=== PATIENT | male | born 1965 | race Asian ===

== ENCOUNTER 2021-08-31 12:32 | Inpatient (IN) | payer OTHER ==
[~2021-08-31] VITALS: Ht 172.7 cm; Wt 69.9 kg
[2021-08-31 15:00] VITALS: BP 98/61
[2021-08-31] MEDS ORDERED: MELATONIN 3 MG TABLET PO PRN (16:00)
[2021-08-31] MEDS ORDERED: INSULIN LISPRO 100 UNITS/ML SQ PRN (18:15)
[2021-08-31] MEDS ORDERED: GLUCAGON,HUMAN RECOMBINANT 1 MG VIAL IM PRN (18:15)
[2021-08-31 20:55] VITALS: BP 104/65
[2021-08-31] MEDS: METOPROLOL TARTRATE 25 MG TABLET PO SCH (21:00)
[2021-08-31] MEDS: PANTOPRAZOLE SODIUM 40 MG DR TABLET PO SCH (21:05)
[2021-08-31] MEDS: ATORVASTATIN CALCIUM 40 MG TABLET PO SCH (21:05)
[2021-08-31] MEDS: ETHYL ALCOHOL 62% ANTISEPTIC NASAL SANITIZER 0.6 ML AMPUL NASAL SCH (21:05)
[2021-08-31] MEDS: DOCUSATE SODIUM 100 MG CAPSULE PO SCH (21:05)
[2021-08-31] MEDS: TAMSULOSIN HCL 0.4 MG CAPSULE PO SCH (21:05)
[2021-08-31 21:35] VITALS: BP 103/65
[2021-08-31 23:29] LABS: APPEARANCE,URINE CLEAR (CLEAR); BILIRUBIN,URINE NEGATIVE (NEGATIVE); GLUCOSE, URINE (UA) NEGATIVE (NEGATIVE); KETONES,URINE NEGATIVE (NEGATIVE); LEUKOCYTE ESTERASE ,URINE NEGATIVE (NEGATIVE); NITRATE,URINE NEGATIVE (NEGATIVE); OCCULT BLOOD,URINE NEGATIVE (NEGATIVE); PROTEIN,URINE NEGATIVE (NEGATIVE); UROBILINOGEN,URINE <=1.0 mg/dL (<=1.0)
[2021-08-31 23:44] LABS: BACTERIA,URINE None Seen /HPF (None Seen); RBC,URINE None Seen /HPF (0-2); WBC,URINE None Seen /HPF (0-5)
[2021-09-01] VITALS: BP 103/59
[2021-09-01 06:02] LABS: GLUCOMETER DEV NAME(LOC) 2WR.1C; GLUCOSE,POINT OF CARE 107 MG/DL (70-110)
[2021-09-01] MEDS: ETHYL ALCOHOL 62% ANTISEPTIC NASAL SANITIZER 0.6 ML AMPUL NASAL SCH ×2 (07:57→21:15)
[2021-09-01] MEDS: AmLODIPine BESYLATE 10 MG TABLET PO SCH (07:57)
[2021-09-01] MEDS: METOPROLOL TARTRATE 25 MG TABLET PO SCH ×2 (07:57→21:00)
[2021-09-01] MEDS: DOCUSATE SODIUM 100 MG CAPSULE PO SCH ×2 (07:58→21:15)
[2021-09-01 08:02] LABS: BASOPHILS % (AUTO) 0.8 % (0.0-2.0); EOSINOPHILS % (AUTO) 13.5 % (1.0-6.0); HEMATOCRIT 35.8 % (41-53); HEMOGLOBIN 11.7 g/dL (13.5-17.5); LYMPHOCYTES # (AUTO) 2.9 K/uL (1.0-4.8); LYMPHOCYTES % (AUTO) 32.5 % (22.0-44.0); MEAN CORPUSCULAR HEMOGLOBIN 22.9 pg (26.0-34.0); MEAN CORPUSCULAR HGB CONC 32.7 G/dL (31.0-37.0); MEAN CORPUSCULAR VOLUME 70 fL (80-100); MONOCYTES # (AUTO) 0.5 K/uL (0.1-1.0); MONOCYTES % (AUTO) 5.3 % (2.0-9.0); NEUTROPHILS # (AUTO) 4.2 K/uL (1.8-7.7); NEUTROPHILS % (AUTO) 47.9 % (40.0-70.0); PLATELET COUNT (AUTO) 317 K/uL (150-450); RED BLOOD CELL COUNT(AUTO) 5.09 MIL/uL (4.50-5.90); RED CELL DISTRIBUTION WIDTH 15.9 % (11.5-14.5)
[2021-09-01 08:09] LABS: HEMOGLOBIN A1C 5.4 % (3.8-5.6)
[2021-09-01 08:15] VITALS: BP 120/72
[2021-09-01 08:22] LABS: ALANINE AMINOTRANSFERASE 22 U/L (12-78); ALBUMIN 3.5 g/dL (3.4-5.0); ALKALINE PHOSPHATASE 90 U/L (46-116); ANION GAP 9 mmol/L (8-16); ASPARTATE AMINOTRANSFERASE 18 U/L (15-37); BILIRUBIN,TOTAL 0.5 mg/dL (0.1-1.0); CALCIUM, TOTAL 9.3 mg/dL (8.8-10.5); CARBON DIOXIDE 27 mmol/L (22-29); CHLORIDE 102 mmol/L (98-107); CREATININE 0.83 mg/dL (0.60-1.30); GLOMERULAR FILTR. RATE CALC > 60 mL/min (>60); GLUCOSE,RANDOM 108 mg/dL (70-110); POTASSIUM 3.7 mmol/L (3.5-5.1); SODIUM SERUM 138 mmol/L (136-145); TOTAL PROTEIN, SERUM 7.5 g/dL (6.4-8.2); UREA NITROGEN, BLOOD 11 mg/dL (7-18)
[2021-09-01 09:35] VITALS: BP 105/75
[2021-09-01] MEDS: ACETAMINOPHEN 325 MG TABLET PO PRN (10:53)
[2021-09-01 16:05] VITALS: BP 101/74
[2021-09-01 21:10] VITALS: BP 100/64
[2021-09-01] MEDS: TAMSULOSIN HCL 0.4 MG CAPSULE PO SCH (21:15)
[2021-09-01] MEDS: PANTOPRAZOLE SODIUM 40 MG DR TABLET PO SCH (21:15)
[2021-09-01] MEDS: ATORVASTATIN CALCIUM 40 MG TABLET PO SCH (21:15)
[2021-09-02] VITALS: BP 100/60
[2021-09-02 08:05] VITALS: BP 115/67
[2021-09-02] MEDS: DOCUSATE SODIUM 100 MG CAPSULE PO SCH ×2 (08:38→20:43)
[2021-09-02] MEDS: ETHYL ALCOHOL 62% ANTISEPTIC NASAL SANITIZER 0.6 ML AMPUL NASAL SCH ×2 (08:38→20:44)
[2021-09-02] MEDS: METOPROLOL TARTRATE 25 MG TABLET PO SCH ×2 (08:38→20:44)
[2021-09-02] MEDS: AmLODIPine BESYLATE 10 MG TABLET PO SCH (08:39)
[2021-09-02] MEDS: ACETAMINOPHEN 325 MG TABLET PO PRN (13:17)
[2021-09-02 16:01] VITALS: BP 99/50
[2021-09-02] MEDS: DOCUSATE SODIUM 283 MG/5 ML MINI-ENEMA PR SCH (18:40)
[2021-09-02] MEDS: TAMSULOSIN HCL 0.4 MG CAPSULE PO SCH (20:43)
[2021-09-02] MEDS: PANTOPRAZOLE SODIUM 40 MG DR TABLET PO SCH (20:43)
[2021-09-02] MEDS: ATORVASTATIN CALCIUM 40 MG TABLET PO SCH (20:44)
[2021-09-02 20:49] VITALS: BP 100/62
[2021-09-03] VITALS: BP 106/67
[2021-09-03] MEDS: ETHYL ALCOHOL 62% ANTISEPTIC NASAL SANITIZER 0.6 ML AMPUL NASAL SCH ×2 (08:16→20:39)
[2021-09-03] MEDS: AmLODIPine BESYLATE 10 MG TABLET PO SCH (08:16)
[2021-09-03] MEDS: DOCUSATE SODIUM 100 MG CAPSULE PO SCH ×2 (08:17→20:39)
[2021-09-03] MEDS: METOPROLOL TARTRATE 25 MG TABLET PO SCH ×2 (08:17→20:39)
[2021-09-03 08:41] VITALS: BP 118/68
[2021-09-03 16:01] VITALS: BP 91/56
[2021-09-03] MEDS: DOCUSATE SODIUM 283 MG/5 ML MINI-ENEMA PR SCH (18:43)
[2021-09-03 20:37] VITALS: BP 101/66
[2021-09-03] MEDS: PANTOPRAZOLE SODIUM 40 MG DR TABLET PO SCH (20:39)
[2021-09-03] MEDS: TAMSULOSIN HCL 0.4 MG CAPSULE PO SCH (20:39)
[2021-09-03] MEDS: ATORVASTATIN CALCIUM 40 MG TABLET PO SCH (20:39)
[2021-09-04 00:30] VITALS: BP 96/52
[2021-09-04] MEDS: DOCUSATE SODIUM 100 MG CAPSULE PO SCH ×2 (08:12→20:20)
[2021-09-04] MEDS: AmLODIPine BESYLATE 10 MG TABLET PO SCH (08:12)
[2021-09-04] MEDS: ETHYL ALCOHOL 62% ANTISEPTIC NASAL SANITIZER 0.6 ML AMPUL NASAL SCH ×2 (08:12→20:20)
[2021-09-04] MEDS: METOPROLOL TARTRATE 25 MG TABLET PO SCH ×2 (08:13→20:20)
[2021-09-04 10:19] VITALS: BP 108/66
[2021-09-04 16:01] VITALS: BP 106/60
[2021-09-04] MEDS: DOCUSATE SODIUM 283 MG/5 ML MINI-ENEMA PR SCH (18:16)
[2021-09-04 20:17] VITALS: BP 106/66
[2021-09-04] MEDS: TAMSULOSIN HCL 0.4 MG CAPSULE PO SCH (20:20)
[2021-09-04] MEDS: PANTOPRAZOLE SODIUM 40 MG DR TABLET PO SCH (20:20)
[2021-09-04] MEDS: ATORVASTATIN CALCIUM 40 MG TABLET PO SCH (20:20)
[2021-09-05 00:48] VITALS: BP 99/58
[2021-09-05 08:30] VITALS: BP 106/65
[2021-09-05] MEDS: AmLODIPine BESYLATE 10 MG TABLET PO SCH (08:53)
[2021-09-05] MEDS: ETHYL ALCOHOL 62% ANTISEPTIC NASAL SANITIZER 0.6 ML AMPUL NASAL SCH ×2 (08:53→21:54)
[2021-09-05] MEDS: DOCUSATE SODIUM 100 MG CAPSULE PO SCH ×2 (08:54→21:54)
[2021-09-05] MEDS: METOPROLOL TARTRATE 25 MG TABLET PO SCH ×2 (08:54→21:00)
[2021-09-05 12:28] LABS: BASOPHILS % (AUTO) 0.5 % (0.0-2.0); EOSINOPHILS % (AUTO) 8.8 % (1.0-6.0); HEMATOCRIT 36.8 % (41-53); HEMOGLOBIN 11.8 g/dL (13.5-17.5); LYMPHOCYTES # (AUTO) 1.9 K/uL (1.0-4.8); LYMPHOCYTES % (AUTO) 24.6 % (22.0-44.0); MEAN CORPUSCULAR HEMOGLOBIN 22.5 pg (26.0-34.0); MEAN CORPUSCULAR HGB CONC 32.1 G/dL (31.0-37.0); MEAN CORPUSCULAR VOLUME 70 fL (80-100); MONOCYTES # (AUTO) 0.5 K/uL (0.1-1.0); MONOCYTES % (AUTO) 6.5 % (2.0-9.0); NEUTROPHILS # (AUTO) 4.6 K/uL (1.8-7.7); NEUTROPHILS % (AUTO) 59.6 % (40.0-70.0); PLATELET COUNT (AUTO) 335 K/uL (150-450); RED BLOOD CELL COUNT(AUTO) 5.24 MIL/uL (4.50-5.90); RED CELL DISTRIBUTION WIDTH 16.1 % (11.5-14.5)
[2021-09-05 12:43] LABS: ALANINE AMINOTRANSFERASE 29 U/L (12-78); ALBUMIN 3.4 g/dL (3.4-5.0); ALKALINE PHOSPHATASE 79 U/L (46-116); ANION GAP 5 mmol/L (8-16); ASPARTATE AMINOTRANSFERASE 22 U/L (15-37); BILIRUBIN,TOTAL 0.3 mg/dL (0.1-1.0); CALCIUM, TOTAL 9.1 mg/dL (8.8-10.5); CARBON DIOXIDE 31 mmol/L (22-29); CHLORIDE 103 mmol/L (98-107); CREATININE 0.89 mg/dL (0.60-1.30); GLOMERULAR FILTR. RATE CALC > 60 mL/min (>60); GLUCOSE,RANDOM 106 mg/dL (70-110); SODIUM SERUM 139 mmol/L (136-145); TOTAL PROTEIN, SERUM 7.6 g/dL (6.4-8.2); UREA NITROGEN, BLOOD 11 mg/dL (7-18)
[2021-09-05 16:10] VITALS: BP 104/63
[2021-09-05 21:48] VITALS: BP 103/64
[2021-09-05] MEDS: ATORVASTATIN CALCIUM 40 MG TABLET PO SCH (21:54)
[2021-09-05] MEDS: TAMSULOSIN HCL 0.4 MG CAPSULE PO SCH (21:54)
[2021-09-05] MEDS: PANTOPRAZOLE SODIUM 40 MG DR TABLET PO SCH (21:55)
[2021-09-06 03:25] VITALS: BP 111/66
[2021-09-06 08:30] VITALS: BP 121/77
[2021-09-06] MEDS: ETHYL ALCOHOL 62% ANTISEPTIC NASAL SANITIZER 0.6 ML AMPUL NASAL SCH ×2 (09:21→20:17)
[2021-09-06] MEDS: MULTIVITAMINS WITH MINERALS, THERAPEUTIC TABLET PO SCH (09:22)
[2021-09-06] MEDS: METOPROLOL TARTRATE 25 MG TABLET PO SCH ×2 (09:22→20:18)
[2021-09-06] MEDS: AmLODIPine BESYLATE 10 MG TABLET PO SCH (09:22)
[2021-09-06] MEDS: DOCUSATE SODIUM 100 MG CAPSULE PO SCH (09:22)
[2021-09-06] MEDS: ACETAMINOPHEN 325 MG TABLET PO PRN (09:22)
[2021-09-06 16:01] VITALS: BP 103/63
[2021-09-06] MEDS: BACLOFEN 10 MG TABLET PO SCH ×2 (16:18→20:17)
[2021-09-06 20:00] VITALS: BP 113/69
[2021-09-06] MEDS: SENNA 187 MG TABLET PO SCH (20:16)
[2021-09-06] MEDS: TAMSULOSIN HCL 0.4 MG CAPSULE PO SCH (20:16)
[2021-09-06] MEDS: PANTOPRAZOLE SODIUM 40 MG DR TABLET PO SCH (20:16)
[2021-09-06] MEDS: ATORVASTATIN CALCIUM 40 MG TABLET PO SCH (20:16)
[2021-09-06] MEDS: DOCUSATE SODIUM 250 MG CAPSULE PO SCH (20:16)
[2021-09-07 00:30] VITALS: BP 103/64
[2021-09-07 08:17] VITALS: BP 102/59
[2021-09-07] MEDS: BACLOFEN 10 MG TABLET PO SCH ×3 (08:21→20:54)
[2021-09-07] MEDS: ETHYL ALCOHOL 62% ANTISEPTIC NASAL SANITIZER 0.6 ML AMPUL NASAL SCH ×2 (08:21→20:57)
[2021-09-07] MEDS: AmLODIPine BESYLATE 10 MG TABLET PO SCH (08:21)
[2021-09-07] MEDS: METOPROLOL TARTRATE 25 MG TABLET PO SCH ×2 (08:21→20:54)
[2021-09-07] MEDS: DOCUSATE SODIUM 250 MG CAPSULE PO SCH ×2 (08:21→20:54)
[2021-09-07] MEDS: MULTIVITAMINS WITH MINERALS, THERAPEUTIC TABLET PO SCH (08:28)
[2021-09-07 16:43] VITALS: BP 103/61
[2021-09-07 20:50] VITALS: BP 106/60
[2021-09-07] MEDS: TAMSULOSIN HCL 0.4 MG CAPSULE PO SCH (20:54)
[2021-09-07] MEDS: ATORVASTATIN CALCIUM 40 MG TABLET PO SCH (20:54)
[2021-09-07] MEDS: PANTOPRAZOLE SODIUM 40 MG DR TABLET PO SCH (20:54)
[2021-09-07] MEDS: SENNA 187 MG TABLET PO SCH (20:57)
[2021-09-08 00:18] VITALS: BP 96/61
[2021-09-08] MEDS: MULTIVITAMINS WITH MINERALS, THERAPEUTIC TABLET PO SCH (08:48)
[2021-09-08] MEDS: AmLODIPine BESYLATE 5 MG TABLET PO SCH (08:48)
[2021-09-08] MEDS: ETHYL ALCOHOL 62% ANTISEPTIC NASAL SANITIZER 0.6 ML AMPUL NASAL SCH ×2 (08:48→20:30)
[2021-09-08] MEDS: METOPROLOL TARTRATE 25 MG TABLET PO SCH ×3 (08:48→20:55)
[2021-09-08] MEDS: DOCUSATE SODIUM 250 MG CAPSULE PO SCH ×2 (08:49→20:31)
[2021-09-08] MEDS: BACLOFEN 10 MG TABLET PO SCH ×3 (08:49→20:31)
[2021-09-08 09:29] VITALS: BP 105/60
[2021-09-08 16:04] VITALS: BP 100/64
[2021-09-08 20:30] VITALS: BP 101/61
[2021-09-08] MEDS: SENNA 187 MG TABLET PO SCH (20:31)
[2021-09-08] MEDS: PANTOPRAZOLE SODIUM 40 MG DR TABLET PO SCH (20:31)
[2021-09-08] MEDS: ATORVASTATIN CALCIUM 40 MG TABLET PO SCH (20:31)
[2021-09-08] MEDS: TAMSULOSIN HCL 0.4 MG CAPSULE PO SCH (20:31)
[2021-09-09 00:12] VITALS: BP 102/64
[2021-09-09 08:05] VITALS: BP 111/80
[2021-09-09] MEDS: DOCUSATE SODIUM 250 MG CAPSULE PO SCH ×2 (08:42→20:50)
[2021-09-09] MEDS: ETHYL ALCOHOL 62% ANTISEPTIC NASAL SANITIZER 0.6 ML AMPUL NASAL SCH ×2 (08:42→20:50)
[2021-09-09] MEDS: MULTIVITAMINS WITH MINERALS, THERAPEUTIC TABLET PO SCH (08:42)
[2021-09-09] MEDS: BACLOFEN 10 MG TABLET PO SCH ×3 (08:42→20:50)
[2021-09-09] MEDS: METOPROLOL TARTRATE 25 MG TABLET PO SCH ×2 (08:43→20:51)
[2021-09-09] MEDS: AmLODIPine BESYLATE 5 MG TABLET PO SCH (08:43)
[2021-09-09 16:05] VITALS: BP 112/67
[2021-09-09 20:25] VITALS: BP 118/73
[2021-09-09] MEDS: ATORVASTATIN CALCIUM 40 MG TABLET PO SCH (20:50)
[2021-09-09] MEDS: TAMSULOSIN HCL 0.4 MG CAPSULE PO SCH (20:51)
[2021-09-09] MEDS: SENNA 187 MG TABLET PO SCH (20:53)
[2021-09-09] MEDS: PANTOPRAZOLE SODIUM 40 MG DR TABLET PO SCH (20:53)
[2021-09-10 00:41] VITALS: BP 104/71
[2021-09-10 09:51] VITALS: BP 111/64
[2021-09-10] MEDS: ETHYL ALCOHOL 62% ANTISEPTIC NASAL SANITIZER 0.6 ML AMPUL NASAL SCH ×2 (10:09→22:05)
[2021-09-10] MEDS: MULTIVITAMINS WITH MINERALS, THERAPEUTIC TABLET PO SCH (10:09)
[2021-09-10] MEDS: BACLOFEN 10 MG TABLET PO SCH ×3 (10:09→22:06)
[2021-09-10] MEDS: DOCUSATE SODIUM 250 MG CAPSULE PO SCH ×2 (10:09→22:06)
[2021-09-10] MEDS: AmLODIPine BESYLATE 5 MG TABLET PO SCH (10:10)
[2021-09-10] MEDS: METOPROLOL TARTRATE 25 MG TABLET PO SCH ×2 (10:10→21:00)
[2021-09-10 16:30] VITALS: BP 123/65
[2021-09-10 21:11] VITALS: BP 92/64
[2021-09-10] MEDS: TAMSULOSIN HCL 0.4 MG CAPSULE PO SCH (22:06)
[2021-09-10] MEDS: ATORVASTATIN CALCIUM 40 MG TABLET PO SCH (22:06)
[2021-09-10] MEDS: SENNA 187 MG TABLET PO SCH (22:06)
[2021-09-10] MEDS: PANTOPRAZOLE SODIUM 40 MG DR TABLET PO SCH (22:06)
[2021-09-11] VITALS: BP 98/61
[2021-09-11 07:20] VITALS: BP 90/61
[2021-09-11] MEDS: ETHYL ALCOHOL 62% ANTISEPTIC NASAL SANITIZER 0.6 ML AMPUL NASAL SCH ×2 (08:10→20:21)
[2021-09-11] MEDS: BACLOFEN 10 MG TABLET PO SCH ×3 (08:11→20:22)
[2021-09-11] MEDS: DOCUSATE SODIUM 250 MG CAPSULE PO SCH ×2 (08:11→20:21)
[2021-09-11] MEDS: METOPROLOL TARTRATE 25 MG TABLET PO SCH ×2 (08:12→20:23)
[2021-09-11] MEDS: AmLODIPine BESYLATE 5 MG TABLET PO SCH (08:13)
[2021-09-11] MEDS: MULTIVITAMINS WITH MINERALS, THERAPEUTIC TABLET PO SCH (08:13)
[2021-09-11 08:30] VITALS: BP 111/73
[2021-09-11 16:35] VITALS: BP 98/64
[2021-09-11] MEDS: TAMSULOSIN HCL 0.4 MG CAPSULE PO SCH (20:22)
[2021-09-11] MEDS: SENNA 187 MG TABLET PO SCH (20:22)
[2021-09-11] MEDS: ATORVASTATIN CALCIUM 40 MG TABLET PO SCH (20:22)
[2021-09-11] MEDS: PANTOPRAZOLE SODIUM 40 MG DR TABLET PO SCH (20:22)
[2021-09-11 20:23] VITALS: BP 100/64
[2021-09-12] VITALS: BP 105/66
[2021-09-12] MEDS: ETHYL ALCOHOL 62% ANTISEPTIC NASAL SANITIZER 0.6 ML AMPUL NASAL SCH ×2 (08:24→21:01)
[2021-09-12] MEDS: MULTIVITAMINS WITH MINERALS, THERAPEUTIC TABLET PO SCH (08:25)
[2021-09-12] MEDS: BACLOFEN 10 MG TABLET PO SCH ×3 (08:25→21:02)
[2021-09-12] MEDS: METOPROLOL TARTRATE 25 MG TABLET PO SCH ×2 (08:26→21:00)
[2021-09-12] MEDS: DOCUSATE SODIUM 250 MG CAPSULE PO SCH ×2 (08:26→21:01)
[2021-09-12] MEDS: AmLODIPine BESYLATE 5 MG TABLET PO SCH (08:26)
[2021-09-12 09:54] VITALS: BP 102/70
[2021-09-12 16:41] VITALS: BP 117/58
[2021-09-12 20:55] VITALS: BP 93/66
[2021-09-12] MEDS: ATORVASTATIN CALCIUM 40 MG TABLET PO SCH (21:01)
[2021-09-12] MEDS: TAMSULOSIN HCL 0.4 MG CAPSULE PO SCH (21:02)
[2021-09-12] MEDS: SENNA 187 MG TABLET PO SCH (21:02)
[2021-09-12] MEDS: PANTOPRAZOLE SODIUM 40 MG DR TABLET PO SCH (21:02)
[2021-09-13 00:10] VITALS: BP 99/60
[2021-09-13 08:02] VITALS: BP 102/66
[2021-09-13] MEDS: AmLODIPine BESYLATE 5 MG TABLET PO SCH (08:45)
[2021-09-13] MEDS: BACLOFEN 10 MG TABLET PO SCH ×3 (08:45→20:24)
[2021-09-13] MEDS: DOCUSATE SODIUM 250 MG CAPSULE PO SCH ×2 (08:45→20:24)
[2021-09-13] MEDS: MULTIVITAMINS WITH MINERALS, THERAPEUTIC TABLET PO SCH (08:45)
[2021-09-13] MEDS: ETHYL ALCOHOL 62% ANTISEPTIC NASAL SANITIZER 0.6 ML AMPUL NASAL SCH ×2 (08:45→20:26)
[2021-09-13] MEDS: METOPROLOL TARTRATE 25 MG TABLET PO SCH ×2 (08:45→20:25)
[2021-09-13 16:07] VITALS: BP 92/59
[2021-09-13 20:22] VITALS: BP 105/70
[2021-09-13] MEDS: ATORVASTATIN CALCIUM 40 MG TABLET PO SCH (20:23)
[2021-09-13] MEDS: PANTOPRAZOLE SODIUM 40 MG DR TABLET PO SCH (20:23)
[2021-09-13] MEDS: SENNA 187 MG TABLET PO SCH (20:23)
[2021-09-13] MEDS: TAMSULOSIN HCL 0.4 MG CAPSULE PO SCH (20:23)
[2021-09-14 01:08] VITALS: BP 98/69
[2021-09-14 08:15] VITALS: BP 123/73
[2021-09-14] MEDS: DOCUSATE SODIUM 250 MG CAPSULE PO SCH ×2 (09:00→21:45)
[2021-09-14] MEDS: ETHYL ALCOHOL 62% ANTISEPTIC NASAL SANITIZER 0.6 ML AMPUL NASAL SCH ×2 (10:11→21:45)
[2021-09-14] MEDS: MULTIVITAMINS WITH MINERALS, THERAPEUTIC TABLET PO SCH (10:11)
[2021-09-14] MEDS: BACLOFEN 10 MG TABLET PO SCH ×4 (10:11→21:46)
[2021-09-14] MEDS: AmLODIPine BESYLATE 5 MG TABLET PO SCH (10:12)
[2021-09-14] MEDS: METOPROLOL TARTRATE 25 MG TABLET PO SCH ×2 (10:12→21:46)
[2021-09-14 10:13] VITALS: BP 107/74
[2021-09-14 16:05] VITALS: BP 128/71
[2021-09-14 21:00] VITALS: BP 122/78
[2021-09-14] MEDS: SENNA 187 MG TABLET PO SCH (21:45)
[2021-09-14] MEDS: ATORVASTATIN CALCIUM 40 MG TABLET PO SCH (21:45)
[2021-09-14] MEDS: PANTOPRAZOLE SODIUM 40 MG DR TABLET PO SCH (21:46)
[2021-09-14] MEDS: TAMSULOSIN HCL 0.4 MG CAPSULE PO SCH (21:47)
[2021-09-15] VITALS: BP 90/64
[2021-09-15 08:05] VITALS: BP 112/64
[2021-09-15] MEDS: MULTIVITAMINS WITH MINERALS, THERAPEUTIC TABLET PO SCH (08:51)
[2021-09-15] MEDS: ETHYL ALCOHOL 62% ANTISEPTIC NASAL SANITIZER 0.6 ML AMPUL NASAL SCH ×2 (08:51→20:26)
[2021-09-15] MEDS: BACLOFEN 10 MG TABLET PO SCH ×4 (08:51→20:26)
[2021-09-15] MEDS: METOPROLOL TARTRATE 25 MG TABLET PO SCH ×2 (08:51→20:26)
[2021-09-15] MEDS: DOCUSATE SODIUM 250 MG CAPSULE PO SCH ×2 (08:51→20:25)
[2021-09-15] MEDS: AmLODIPine BESYLATE 5 MG TABLET PO SCH (08:52)
[2021-09-15 16:25] VITALS: BP 125/64
[2021-09-15 20:13] VITALS: BP 101/66
[2021-09-15] MEDS: ATORVASTATIN CALCIUM 40 MG TABLET PO SCH (20:25)
[2021-09-15] MEDS: SENNA 187 MG TABLET PO SCH (20:25)
[2021-09-15] MEDS: TAMSULOSIN HCL 0.4 MG CAPSULE PO SCH (20:26)
[2021-09-15] MEDS: PANTOPRAZOLE SODIUM 40 MG DR TABLET PO SCH (20:28)
[2021-09-16] VITALS: BP 96/59
[2021-09-16] MEDS: DOCUSATE SODIUM 250 MG CAPSULE PO SCH ×2 (08:26→20:55)
[2021-09-16] MEDS: BACLOFEN 10 MG TABLET PO SCH ×4 (08:27→20:55)
[2021-09-16] MEDS: METOPROLOL TARTRATE 25 MG TABLET PO SCH ×2 (08:27→21:00)
[2021-09-16] MEDS: AmLODIPine BESYLATE 5 MG TABLET PO SCH (08:27)
[2021-09-16] MEDS: MULTIVITAMINS WITH MINERALS, THERAPEUTIC TABLET PO SCH (08:28)
[2021-09-16] MEDS: ETHYL ALCOHOL 62% ANTISEPTIC NASAL SANITIZER 0.6 ML AMPUL NASAL SCH ×2 (08:28→20:55)
[2021-09-16 08:43] VITALS: BP 107/67
[2021-09-16 16:01] VITALS: BP 118/61
[2021-09-16] MEDS: GABAPENTIN 100 MG CAPSULE PO SCH ×2 (16:15→20:55)
[2021-09-16] MEDS: PANTOPRAZOLE SODIUM 40 MG DR TABLET PO SCH (20:55)
[2021-09-16] MEDS: ATORVASTATIN CALCIUM 40 MG TABLET PO SCH (20:55)
[2021-09-16] MEDS: TAMSULOSIN HCL 0.4 MG CAPSULE PO SCH (20:55)
[2021-09-16] MEDS: SENNA 187 MG TABLET PO SCH (20:55)
[2021-09-17 00:08] VITALS: BP 97/60
[2021-09-17 07:50] VITALS: BP 123/92
[2021-09-17] MEDS: MULTIVITAMINS WITH MINERALS, THERAPEUTIC TABLET PO SCH (08:48)
[2021-09-17] MEDS: ETHYL ALCOHOL 62% ANTISEPTIC NASAL SANITIZER 0.6 ML AMPUL NASAL SCH ×2 (08:48→20:56)
[2021-09-17] MEDS: BACLOFEN 10 MG TABLET PO SCH ×4 (08:48→20:58)
[2021-09-17] MEDS: GABAPENTIN 100 MG CAPSULE PO SCH ×3 (08:48→20:58)
[2021-09-17] MEDS: AmLODIPine BESYLATE 5 MG TABLET PO SCH (08:49)
[2021-09-17] MEDS: METOPROLOL TARTRATE 25 MG TABLET PO SCH ×2 (08:50→20:59)
[2021-09-17] MEDS: DOCUSATE SODIUM 250 MG CAPSULE PO SCH ×2 (09:01→20:57)
[2021-09-17 16:05] VITALS: BP 89/68
[2021-09-17 20:10] VITALS: BP 111/82
[2021-09-17] MEDS: SENNA 187 MG TABLET PO SCH (20:57)
[2021-09-17] MEDS: TAMSULOSIN HCL 0.4 MG CAPSULE PO SCH (20:58)
[2021-09-17] MEDS: PANTOPRAZOLE SODIUM 40 MG DR TABLET PO SCH (20:58)
[2021-09-17] MEDS: ATORVASTATIN CALCIUM 40 MG TABLET PO SCH (20:59)
[2021-09-18] VITALS: BP 115/65
[2021-09-18] MEDS: METOPROLOL TARTRATE 25 MG TABLET PO SCH ×2 (08:29→20:46)
[2021-09-18] MEDS: ETHYL ALCOHOL 62% ANTISEPTIC NASAL SANITIZER 0.6 ML AMPUL NASAL SCH ×2 (08:29→20:45)
[2021-09-18] MEDS: AmLODIPine BESYLATE 5 MG TABLET PO SCH (08:29)
[2021-09-18] MEDS: GABAPENTIN 100 MG CAPSULE PO SCH ×3 (08:29→20:43)
[2021-09-18] MEDS: BACLOFEN 10 MG TABLET PO SCH ×4 (08:29→20:43)
[2021-09-18] MEDS: MULTIVITAMINS WITH MINERALS, THERAPEUTIC TABLET PO SCH (08:29)
[2021-09-18] MEDS: DOCUSATE SODIUM 250 MG CAPSULE PO SCH ×2 (08:32→20:43)
[2021-09-18 09:25] VITALS: BP 107/65
[2021-09-18 12:22] VITALS: BP 103/62
[2021-09-18] MEDS: ACETAMINOPHEN 325 MG TABLET PO PRN (12:22)
[2021-09-18 16:25] VITALS: BP 89/57
[2021-09-18 20:20] VITALS: BP 95/65
[2021-09-18] MEDS: PANTOPRAZOLE SODIUM 40 MG DR TABLET PO SCH (20:43)
[2021-09-18] MEDS: TAMSULOSIN HCL 0.4 MG CAPSULE PO SCH (20:43)
[2021-09-18] MEDS: ATORVASTATIN CALCIUM 40 MG TABLET PO SCH (20:44)
[2021-09-18] MEDS: SENNA 187 MG TABLET PO SCH (20:46)
[2021-09-19 01:09] VITALS: BP 91/59
[2021-09-19] MEDS ORDERED: GABA-1216 PO (04:25)
[2021-09-19] MEDS ORDERED: BACL10TA PO (04:25)
[2021-09-19] MEDS ORDERED: TAMS-13 PO (04:25)
[2021-09-19] MEDS ORDERED: DOCU-350 PO (04:25)
[2021-09-19] MEDS ORDERED: AMLO-257 PO (04:25)
[2021-09-19] MEDS ORDERED: ATOR40TA28 PO (04:25)
[2021-09-19] MEDS ORDERED: MULT-1239 PO (04:25)
[2021-09-19] MEDS ORDERED: METO25 PO (04:25)
[2021-09-19] MEDS ORDERED: PANT-31 PO (04:25)
[2021-09-19 08:00] VITALS: BP 107/68
[2021-09-19] MEDS: ETHYL ALCOHOL 62% ANTISEPTIC NASAL SANITIZER 0.6 ML AMPUL NASAL SCH ×2 (08:57→20:20)
[2021-09-19] MEDS: BACLOFEN 10 MG TABLET PO SCH ×4 (08:58→20:19)
[2021-09-19] MEDS: GABAPENTIN 100 MG CAPSULE PO SCH ×3 (08:59→20:19)
[2021-09-19] MEDS: METOPROLOL TARTRATE 25 MG TABLET PO SCH ×2 (08:59→21:00)
[2021-09-19] MEDS: MULTIVITAMINS WITH MINERALS, THERAPEUTIC TABLET PO SCH (09:00)
[2021-09-19] MEDS: DOCUSATE SODIUM 250 MG CAPSULE PO SCH ×2 (09:00→20:20)
[2021-09-19] MEDS: AmLODIPine BESYLATE 5 MG TABLET PO SCH (09:00)
[2021-09-19 16:19] VITALS: BP 109/57
[2021-09-19 17:05] VITALS: BP 109/59
[2021-09-19 20:05] VITALS: BP 96/64
[2021-09-19] MEDS: SENNA 187 MG TABLET PO SCH (20:19)
[2021-09-19] MEDS: ATORVASTATIN CALCIUM 40 MG TABLET PO SCH (20:20)
[2021-09-19] MEDS: PANTOPRAZOLE SODIUM 40 MG DR TABLET PO SCH (20:20)
[2021-09-19] MEDS: TAMSULOSIN HCL 0.4 MG CAPSULE PO SCH (20:20)
[2021-09-20] MEDS: METOPROLOL TARTRATE 25 MG TABLET PO SCH ×2 (08:53→21:00)
[2021-09-20] MEDS: AmLODIPine BESYLATE 5 MG TABLET PO SCH (08:53)
[2021-09-20] MEDS: ETHYL ALCOHOL 62% ANTISEPTIC NASAL SANITIZER 0.6 ML AMPUL NASAL SCH ×2 (08:53→21:05)
[2021-09-20] MEDS: BACLOFEN 10 MG TABLET PO SCH ×4 (08:54→21:04)
[2021-09-20] MEDS: MULTIVITAMINS WITH MINERALS, THERAPEUTIC TABLET PO SCH (08:54)
[2021-09-20] MEDS: GABAPENTIN 100 MG CAPSULE PO SCH ×3 (08:54→21:03)
[2021-09-20] MEDS: DOCUSATE SODIUM 250 MG CAPSULE PO SCH ×2 (08:54→21:03)
[2021-09-20 09:00] VITALS: BP 111/66
[2021-09-20] MEDS ORDERED: DOCU-350 PO (10:40)
[2021-09-20] MEDS ORDERED: AMLO-257 PO (10:40)
[2021-09-20] MEDS ORDERED: SENN-187 PO (10:40)
[2021-09-20] MEDS ORDERED: TAMS-13 PO (10:40)
[2021-09-20] MEDS ORDERED: METO25 PO (10:40)
[2021-09-20] MEDS ORDERED: PANT-31 PO (10:40)
[2021-09-20] MEDS ORDERED: BACL10TA PO (10:40)
[2021-09-20] MEDS ORDERED: MULT-1239 PO (10:40)
[2021-09-20] MEDS ORDERED: ATOR40TA71 PO (10:40)
[2021-09-20] MEDS ORDERED: GABA-1216 PO (10:40)
[2021-09-20 15:00] VITALS: BP 102/69
[2021-09-20 20:33] VITALS: BP 104/58
[2021-09-20] MEDS: TAMSULOSIN HCL 0.4 MG CAPSULE PO SCH (21:03)
[2021-09-20] MEDS: PANTOPRAZOLE SODIUM 40 MG DR TABLET PO SCH (21:03)
[2021-09-20] MEDS: ATORVASTATIN CALCIUM 40 MG TABLET PO SCH (21:03)
[2021-09-20] MEDS: SENNA 187 MG TABLET PO SCH (21:04)
[2021-09-20 21:12] VITALS: BP 100/65
[2021-09-21 08:05] VITALS: BP 113/60
[2021-09-21] MEDS: ETHYL ALCOHOL 62% ANTISEPTIC NASAL SANITIZER 0.6 ML AMPUL NASAL SCH ×2 (08:29→20:41)
[2021-09-21] MEDS: BACLOFEN 10 MG TABLET PO SCH ×4 (08:29→20:40)
[2021-09-21] MEDS: GABAPENTIN 100 MG CAPSULE PO SCH ×3 (08:29→20:41)
[2021-09-21] MEDS: AmLODIPine BESYLATE 5 MG TABLET PO SCH (08:29)
[2021-09-21] MEDS: MULTIVITAMINS WITH MINERALS, THERAPEUTIC TABLET PO SCH (08:29)
[2021-09-21] MEDS: DOCUSATE SODIUM 250 MG CAPSULE PO SCH ×2 (08:29→20:41)
[2021-09-21 09:05] VITALS: BP 114/70
[2021-09-21] MEDS: METOPROLOL TARTRATE 25 MG TABLET PO SCH ×2 (09:49→20:41)
[2021-09-21 20:00] VITALS: BP 98/63
[2021-09-21] MEDS: SENNA 187 MG TABLET PO SCH (20:40)
[2021-09-21] MEDS: ATORVASTATIN CALCIUM 40 MG TABLET PO SCH (20:41)
[2021-09-21] MEDS: TAMSULOSIN HCL 0.4 MG CAPSULE PO SCH (20:41)
[2021-09-21] MEDS: PANTOPRAZOLE SODIUM 40 MG DR TABLET PO SCH (20:41)
[2021-09-22 00:05] VITALS: BP 103/61
[2021-09-22 08:15] VITALS: BP 103/67
[2021-09-22] MEDS: ETHYL ALCOHOL 62% ANTISEPTIC NASAL SANITIZER 0.6 ML AMPUL NASAL SCH (08:35)
[2021-09-22] MEDS: DOCUSATE SODIUM 250 MG CAPSULE PO SCH (08:36)
[2021-09-22] MEDS: BACLOFEN 10 MG TABLET PO SCH ×2 (08:36→13:38)
[2021-09-22] MEDS: MULTIVITAMINS WITH MINERALS, THERAPEUTIC TABLET PO SCH (08:36)
[2021-09-22] MEDS: GABAPENTIN 100 MG CAPSULE PO SCH (08:36)
[2021-09-22] MEDS: METOPROLOL TARTRATE 25 MG TABLET PO SCH (08:36)
[2021-09-22] MEDS: AmLODIPine BESYLATE 5 MG TABLET PO SCH (08:36)
[2021-09-22 15:06] VITALS: BP 99/64
== END 2021-09-22 16:15 | disposition home health service (06) | DRG 56 ==
LOC: 2WR 13:48
PROVIDERS: ADMIT Physical Medicine & Rehabilitation; ATTEND Physical Medicine & Rehabilitation
DX: G81.91 Hemiplegia, unspecified affecting right dominant side (principal); I63.9 Cerebral infarction, unspecified; R47.01 Aphasia; E11.9 Type 2 diabetes mellitus without complications; E78.5 Hyperlipidemia, unspecified; I10 Essential (primary) hypertension; K21.9 Gastro-esophageal reflux disease without esophagitis; K59.00 Constipation, unspecified; N40.0 Benign prostatic hyperplasia without lower urinary tract symptoms; G47.00 Insomnia, unspecified; R25.2 Cramp and spasm; R48.2 Apraxia; R13.10 Dysphagia, unspecified; Z95.828 Presence of other vascular implants and grafts; Z79.899 Other long term (current) drug therapy
CPT/HCPCS: 80053; 81001; 82962; 83036; 85025; 87081; 92507; 92523; 93970; 97110; 97112; 97116; 97140; 97163; 97167; 97530; 97535; 99366

== ENCOUNTER 2022-07-26 05:54 | Inpatient (IN) | payer OTHER ==
[~2022-07-26] VITALS: Ht 165.1 cm; Wt 78.5 kg
[~2022-07-26 05:54] MED LIST: AMLO-257 PO; ATOR40TA28 PO; ATOR40TA71 PO; BACL10TA PO; DOCU-350 PO; GABA-1216 PO; METO25 PO; MULT-1239 PO; PANT-31 PO; SENN-187 PO; TAMS-13 PO
[2022-07-26] MEDS ORDERED: SODIUM CHLORIDE 0.9% 1,000 ML IV ONE (06:45)
[2022-07-26] MEDS ORDERED: FAMOTIDINE 10 MG/ML 2 ML VIAL IVP ONE (06:45)
[2022-07-26] MEDS ORDERED: ONDANSETRON HCL 4 MG/2 ML VIAL IVP ONE (06:45)
[2022-07-26 07:07] LABS: BASOPHILS % (AUTO) 0.5 % (0.0-2.0); EOSINOPHILS % (AUTO) 5.2 % (1.0-6.0); HEMATOCRIT 44.1 % (41-53); HEMOGLOBIN 14.3 g/dL (13.5-17.5); LYMPHOCYTES # (AUTO) 3.5 K/uL (1.0-4.8); LYMPHOCYTES % (AUTO) 22.7 % (22.0-44.0); MEAN CORPUSCULAR HEMOGLOBIN 24.6 pg (26.0-34.0); MEAN CORPUSCULAR HGB CONC 32.4 G/dL (31.0-37.0); MEAN CORPUSCULAR VOLUME 76 fL (80-100); MONOCYTES # (AUTO) 0.8 K/uL (0.1-1.0); NEUTROPHILS # (AUTO) 10.3 K/uL (1.8-7.7); NEUTROPHILS % (AUTO) 66.6 % (40.0-70.0); PLATELET COUNT (AUTO) 154 K/uL (150-450); RED CELL DISTRIBUTION WIDTH 14.9 % (11.5-14.5)
[2022-07-26 07:17] LABS: ANION GAP 7 mmol/L (8-16); CALCIUM, TOTAL 8.2 mg/dL (8.8-10.5); CARBON DIOXIDE 24 mmol/L (22-29); CHLORIDE 109 mmol/L (98-107); CREATININE 1.16 mg/dL (0.60-1.30); GLOMERULAR FILTR. RATE CALC > 60 mL/min (>60); GLUCOSE,RANDOM 120 mg/dL (70-110); SODIUM SERUM 140 mmol/L (136-145); UREA NITROGEN, BLOOD 12 mg/dL (7-18)
[2022-07-26 07:22] LABS: INR 1.1 (0.9-1.1); PROTHROMBIN TIME 11.4 SEC (9.4-11.6)
[2022-07-26 07:33] LABS: LACTIC ACID 3.6 mmol/L (0.4-2.0)
[2022-07-26 07:35] LABS: ALANINE AMINOTRANSFERASE 39 U/L (12-78); ALBUMIN 3.4 g/dL (3.4-5.0); ALKALINE PHOSPHATASE 86 U/L (46-116); ASPARTATE AMINOTRANSFERASE 23 U/L (15-37); BILIRUBIN,TOTAL 0.6 mg/dL (0.1-1.0); LIPASE 110 U/L (73-393); TOTAL PROTEIN, SERUM 6.9 g/dL (6.4-8.2)
[2022-07-26] MEDS ORDERED: RINGERS SOLUTION,LACTATED 1,000 ML IV ONE (07:45)
[2022-07-26 07:47] LABS: COVID AG,FIA SOURCE NASAL SWAB
[2022-07-26] MEDS ORDERED: IOHEXOL 350 MG/ML 100 ML VIAL ONE (08:16)
[2022-07-26] MEDS ORDERED: SODIUM CHLORIDE 0.9% 100 ML ONE (08:16)
[2022-07-26 08:19] LABS: APPEARANCE,URINE CLEAR (CLEAR); BILIRUBIN,URINE NEGATIVE (NEGATIVE); GLUCOSE, URINE (UA) NEGATIVE (NEGATIVE); KETONES,URINE NEGATIVE (NEGATIVE); LEUKOCYTE ESTERASE ,URINE NEGATIVE (NEGATIVE); NITRATE,URINE NEGATIVE (NEGATIVE); OCCULT BLOOD,URINE NEGATIVE (NEGATIVE); PROTEIN,URINE NEGATIVE (NEGATIVE); SPECIFIC GRAVITIY, URINE 1.012 (1.003-1.030); UROBILINOGEN,URINE <=1.0 mg/dL (<=1.0)
[2022-07-26] MEDS ORDERED: BISACODYL 10 MG RECTAL RECTAL SUPPOSITORY PR PRN (11:15)
[2022-07-26] MEDS ORDERED: ACETAMINOPHEN 325 MG TABLET PO PRN (11:15)
[2022-07-26] MEDS ORDERED: ONDANSETRON HCL 4 MG/2 ML VIAL IVP PRN (11:15)
[2022-07-26] MEDS: METOPROLOL TARTRATE 25 MG TABLET PO SCH ×2 (12:39→20:12)
[2022-07-26] MEDS ORDERED: GADOTERATE MEGLUMINE 10 MMOL/20 ML VIAL IVP ONE (15:17)
[2022-07-26 16:33] VITALS: BP 126/75
[2022-07-26 20:32] VITALS: BP 110/63
[2022-07-26 23:05] VITALS: BP 120/74
[2022-07-27 04:52] VITALS: BP 113/67
[2022-07-27 07:30] VITALS: BP 113/75
[2022-07-27] MEDS: METOPROLOL TARTRATE 25 MG TABLET PO SCH ×2 (08:59→21:16)
[2022-07-27] MEDS: PANTOPRAZOLE SODIUM 40 MG/VIAL IVP SCH (09:00)
[2022-07-27 11:28] VITALS: BP 113/73
[2022-07-27 17:00] VITALS: BP 111/66
[2022-07-27 20:38] VITALS: BP 111/64
[2022-07-28 00:17] VITALS: BP 113/69
[2022-07-28 04:38] VITALS: BP 99/57
[2022-07-28 07:15] VITALS: BP 100/60
[2022-07-28 07:42] LABS: BASOPHILS % (AUTO) 0.5 % (0.0-2.0); EOSINOPHILS % (AUTO) 9.9 % (1.0-6.0); HEMATOCRIT 44.5 % (41-53); HEMOGLOBIN 14.6 g/dL (13.5-17.5); LYMPHOCYTES # (AUTO) 2.9 K/uL (1.0-4.8); LYMPHOCYTES % (AUTO) 32.4 % (22.0-44.0); MEAN CORPUSCULAR HEMOGLOBIN 24.7 pg (26.0-34.0); MEAN CORPUSCULAR HGB CONC 32.7 G/dL (31.0-37.0); MEAN CORPUSCULAR VOLUME 76 fL (80-100); MONOCYTES # (AUTO) 0.6 K/uL (0.1-1.0); NEUTROPHILS # (AUTO) 4.5 K/uL (1.8-7.7); NEUTROPHILS % (AUTO) 50.2 % (40.0-70.0); PLATELET COUNT (AUTO) 152 K/uL (150-450); RED BLOOD CELL COUNT(AUTO) 5.89 MIL/uL (4.50-5.90); RED CELL DISTRIBUTION WIDTH 14.9 % (11.5-14.5)
[2022-07-28] MEDS: METOPROLOL TARTRATE 25 MG TABLET PO SCH (08:42)
[2022-07-28] MEDS: PANTOPRAZOLE SODIUM 40 MG/VIAL IVP SCH (08:42)
[2022-07-28 11:14] VITALS: BP 101/64
== END 2022-07-28 13:30 | disposition home health service (06) | DRG 71 ==
LOC: EMS 05:55 → 5S 15:37
PROVIDERS: ADMIT Internal Medicine; ATTEND Internal Medicine
DX: G93.40 Encephalopathy, unspecified (principal); E87.20 Acidosis, unspecified; I69.351 Hemiplegia and hemiparesis following cerebral infarction affecting right dominant side; R65.10 Systemic inflammatory response syndrome (SIRS) of non-infectious origin without acute organ dysfunction; Z20.822 Contact with and (suspected) exposure to COVID-19; I10 Essential (primary) hypertension; N40.0 Benign prostatic hyperplasia without lower urinary tract symptoms; I48.0 Paroxysmal atrial fibrillation; E78.5 Hyperlipidemia, unspecified; Z95.828 Presence of other vascular implants and grafts; Z86.718 Personal history of other venous thrombosis and embolism; I69.320 Aphasia following cerebral infarction; Z79.899 Other long term (current) drug therapy; Z88.0 Allergy status to penicillin
CPT/HCPCS: 70450; 70553; 71045; 74018; 74177; 80053; 81003; 83605; 83690; 83880; 85025; 85610; 85730; 87040; 92507; 92523; 92526; 92610; 93005; 93306; 93970; 97112; 97163; 97166; 97530; 97535; 99285; C9113; J2405; J3490; J7030; J7050; J7120; Q9967; 36415-L1; 36415-TC

== ENCOUNTER 2024-03-05 21:17 | Inpatient (IN) | payer OTHER ==
[~2024-03-05] VITALS: Ht 175.3 cm; Wt 81.5 kg
[~2024-03-05 21:17] MED LIST changes: -AMLO-257 PO; -ATOR40TA71 PO; -BACL10TA PO; -DOCU-350 PO; +DOCU-385 PO; +LEVE-71 PO; -METO25 PO; +METO37.5 PO; -MULT-1239 PO; -PANT-31 PO; -SENN-187 PO; -TAMS-13 PO
[2024-03-05] MEDS ORDERED: METO25TA6 PO (21:51)
[2024-03-05] MEDS ORDERED: ESCI-8 PO (21:51)
[2024-03-05] MEDS ORDERED: ASPI81TA87 PO (21:51)
[2024-03-05 21:58] LABS: BASOPHILS % (AUTO) 0.7 % (0.0-2.0); EOSINOPHILS % (AUTO) 11.1 % (1.0-6.0); HEMATOCRIT 46.7 % (41-53); LYMPHOCYTES # (AUTO) 4.9 K/uL (1.0-4.8); LYMPHOCYTES % (AUTO) 46.8 % (22.0-44.0); MEAN CORPUSCULAR HEMOGLOBIN 24.5 pg (26.0-34.0); MEAN CORPUSCULAR VOLUME 77 fL (80-100); MONOCYTES # (AUTO) 0.5 K/uL (0.1-1.0); MONOCYTES % (AUTO) 5.2 % (2.0-9.0); NEUTROPHILS # (AUTO) 3.8 K/uL (1.8-7.7); NEUTROPHILS % (AUTO) 36.2 % (40.0-70.0); PLATELET COUNT (AUTO) 168 K/uL (150-450); RED CELL DISTRIBUTION WIDTH 14.8 % (11.5-14.5); WHITE BLOOD COUNT (AUTO) 10.5 K/uL (4.5-11.0)
[2024-03-05 22:09] LABS: RBC MORPHOLOGY COMMENT ABNORMAL RBC MORPH
[2024-03-05 22:11] LABS: ANION GAP 4 mmol/L (8-16); CALCIUM, TOTAL 8.4 mg/dL (8.8-10.5); CARBON DIOXIDE 28 mmol/L (22-29); CHLORIDE 104 mmol/L (98-107); CREATININE 1.13 mg/dL (0.60-1.30); GLOMERULAR FILTR. RATE CALC > 60 mL/min (>60); GLUCOSE,RANDOM 111 mg/dL (70-110); POTASSIUM 3.7 mmol/L (3.5-5.1); SODIUM SERUM 136 mmol/L (136-145); UREA NITROGEN, BLOOD 13 mg/dL (7-18)
[2024-03-05 22:39] LABS: ALCOHOL, BLOOD (SERUM) < 3 mg/dL (0-10)
[2024-03-05 22:42] LABS: APPEARANCE,URINE CLEAR (CLEAR); BILIRUBIN,URINE NEGATIVE (NEGATIVE); COLOR,URINE YELLOW (YELLOW); GLUCOSE, URINE (UA) NEGATIVE (NEGATIVE); KETONES,URINE NEGATIVE (NEGATIVE); LEUKOCYTE ESTERASE ,URINE NEGATIVE (NEGATIVE); NITRATE,URINE NEGATIVE (NEGATIVE); OCCULT BLOOD,URINE NEGATIVE (NEGATIVE); PROTEIN,URINE TRACE mg/dL (NEGATIVE); SPECIFIC GRAVITIY, URINE 1.021 (1.003-1.030); UROBILINOGEN,URINE <=1.0 mg/dL (<=1.0)
[2024-03-05 22:46] LABS: ALCOHOL, URINE DRUG SCREEN NEGATIVE (NEGATIVE); AMPHET/METH SCREEN,URINE NEGATIVE (NEGATIVE); BARBITURATE SCREEN, URINE NEGATIVE (NEGATIVE); BENZODIAZEPINES SCREEN,URINE POSITIVE (NEGATIVE); CANNABINOID SCREEN,URINE NEGATIVE (NEGATIVE); COCAINE SCREEN,URINE NEGATIVE (NEGATIVE); METHADONE SCREEN, URINE NEGATIVE (NEGATIVE); OPIATE SCREEN,URINE NEGATIVE (NEGATIVE); PHENCYCLIDINE SCREEN,URINE NEGATIVE (NEGATIVE)
[2024-03-05] MEDS: LevETIRAcetam 1,000 MG in DEXTROSE 5%-WATER 100 ML IV ONE (22:49)
[2024-03-05 22:54] LABS: TROPONIN I-HIGH SENSITIVITY 8 ng/L (<76)
[2024-03-05 22:55] LABS: B-TYPE NATRIURETIC PEPTIDE 16 pg/mL (0-100); CREATINE KINASE, TOTAL ONLY 140 U/L (39-308)
[2024-03-05] MEDS ORDERED: LORazepam 2 MG/ML VIAL IVP PRN (23:30)
[2024-03-05] MEDS ORDERED: ACETAMINOPHEN 325 MG TABLET PO PRN (23:30)
[2024-03-05] MEDS ORDERED: ONDANSETRON HCL 4 MG/2 ML VIAL IVP PRN (23:30)
[2024-03-05] MEDS: HEPARIN SODIUM,PORCINE 5,000 UNITS/ML VIAL SQ SCH (23:39)
[2024-03-06] VITALS (7 sets, daily range): BP systolic 95–120; BP diastolic 62–81; PULSE 53–62; RESP 17–19; TEMP 97.9–99; O2SAT 98–99
[2024-03-06] MEDS: SODIUM CHLORIDE 0.9% 1,000 ML IV ONE (00:08)
[2024-03-06] MEDS: FAMOTIDINE 20 MG TABLET PO SCH (08:18)
[2024-03-06] MEDS: LevETIRAcetam 500 MG TABLET PO SCH (08:20)
[2024-03-06] MEDS: ASPIRIN 81 MG CHEWABLE TABLET PO SCH (08:21)
[2024-03-06] MEDS: DOCUSATE SODIUM 100 MG CAPSULE PO SCH (08:21)
[2024-03-06] MEDS: ATORVASTATIN CALCIUM 20 MG TABLET PO SCH (08:22)
[2024-03-07 06:08] VITALS: BP 96/64; PULSE 62; RESP 16; TEMP 99; O2SAT 98
[2024-03-07 07:36] VITALS: BP 100/57; PULSE 69; RESP 18; TEMP 98.6; O2SAT 97
[2024-03-07 11:01] VITALS: BP 107/64; PULSE 68; RESP 19; TEMP 98.4; O2SAT 100
[2024-03-07] MEDS ORDERED: LEVE250T81 PO (11:35)
== END 2024-03-07 15:30 | disposition home or self-care (01) | DRG 100 ==
LOC: EMS 21:17 → EDH 03-06 01:19 → 5S 03-06 03:23
PROVIDERS: ADMIT Internal Medicine; ATTEND Internal Medicine
DX: G40.89 Other seizures (principal); R53.2 Functional quadriplegia; I69.351 Hemiplegia and hemiparesis following cerebral infarction affecting right dominant side; Z88.0 Allergy status to penicillin; Z79.899 Other long term (current) drug therapy; Z74.01 Bed confinement status
CPT/HCPCS: 70450; 71045; 80048; 80307; 81003; 82550; 83880; 84484; 85025; 99285; G0480; J0712; J1644; J7060; 36415-L1; 36415-TC

== ENCOUNTER 2024-04-04 15:17 | Emergency (ER) | payer OTHER ==
[~2024-04-04] VITALS: Ht 172.7 cm; Wt 77.0 kg
[~2024-04-04 15:17] MED LIST changes: +ASPI81TA87 PO; +ESCI-8 PO; -LEVE-71 PO; +LEVE250T81 PO; -METO37.5 PO
[2024-04-04 18:03] LABS: ANION GAP 8 mmol/L (8-16); BASOPHILS % (AUTO) 0.3 % (0.0-2.0); CALCIUM, TOTAL 8.7 mg/dL (8.8-10.5); CARBON DIOXIDE 28 mmol/L (22-29); CHLORIDE 105 mmol/L (98-107); CREATININE 1.17 mg/dL (0.60-1.30); EOSINOPHILS % (AUTO) 3.5 % (1.0-6.0); GLOMERULAR FILTR. RATE CALC > 60 mL/min (>60); GLUCOSE,RANDOM 99 mg/dL (70-110); HEMATOCRIT 46.7 % (41-53); HEMOGLOBIN 15.2 g/dL (13.5-17.5); LYMPHOCYTES # (AUTO) 1.7 K/uL (1.0-4.8); LYMPHOCYTES % (AUTO) 13.3 % (22.0-44.0); MEAN CORPUSCULAR HEMOGLOBIN 24.8 pg (26.0-34.0); MEAN CORPUSCULAR HGB CONC 32.5 G/dL (31.0-37.0); MEAN CORPUSCULAR VOLUME 76 fL (80-100); MONOCYTES # (AUTO) 0.5 K/uL (0.1-1.0); MONOCYTES % (AUTO) 4.2 % (2.0-9.0); NEUTROPHILS % (AUTO) 78.7 % (40.0-70.0); PLATELET COUNT (AUTO) 169 K/uL (150-450); POTASSIUM 4.5 mmol/L (3.5-5.1); RED BLOOD CELL COUNT(AUTO) 6.13 MIL/uL (4.50-5.90); RED CELL DISTRIBUTION WIDTH 14.9 % (11.5-14.5); SODIUM SERUM 141 mmol/L (136-145); UREA NITROGEN, BLOOD 9 mg/dL (7-18); WHITE BLOOD COUNT (AUTO) 12.7 K/uL (4.5-11.0)
[2024-04-04 18:13] LABS: TROPONIN I-HIGH SENSITIVITY 7 ng/L (<76)
[2024-04-04 22:57] LABS: APPEARANCE,URINE CLEAR (CLEAR); BILIRUBIN,URINE NEGATIVE (NEGATIVE); COLOR,URINE LIGHT YELLOW (YELLOW); GLUCOSE, URINE (UA) NEGATIVE (NEGATIVE); KETONES,URINE NEGATIVE (NEGATIVE); LEUKOCYTE ESTERASE ,URINE NEGATIVE (NEGATIVE); NITRATE,URINE NEGATIVE (NEGATIVE); OCCULT BLOOD,URINE NEGATIVE (NEGATIVE); PH,URINE 7.5 (5.0-8.0); PROTEIN,URINE NEGATIVE (NEGATIVE); SPECIFIC GRAVITIY, URINE 1.009 (1.003-1.030); UROBILINOGEN,URINE <=1.0 mg/dL (<=1.0)
[2024-04-04 23:32] VITALS: BP 119/75; PULSE 75; RESP 18; TEMP 97.9; O2SAT 99
== END 2024-04-04 23:32 | disposition home or self-care (01) ==
LOC: EMS 15:17
DX: R55 Syncope and collapse (principal); Z88.0 Allergy status to penicillin; Z79.82 Long term (current) use of aspirin; Z79.899 Other long term (current) drug therapy
CPT/HCPCS: 80048; 81003; 83880; 84484; 85025; 93005; 99284

== ENCOUNTER 2025-02-16 02:07 | Emergency (ER) | payer OTHER ==
[~2025-02-16] VITALS: Ht 172.7 cm; Wt 77.3 kg
[2025-02-16 03:34] LABS: PLATELET COUNT (AUTO) 161 K/uL (150-450); RED BLOOD CELL COUNT(AUTO) 6.08 MIL/uL (4.50-5.90); RED CELL DISTRIBUTION WIDTH 14.8 % (11.5-14.5); WHITE BLOOD COUNT (AUTO) 17.1 K/uL (4.5-11.0)
[2025-02-16 03:42] LABS: CALCIUM, TOTAL 9.0 mg/dL (8.8-10.5); CREATININE 1.11 mg/dL (0.60-1.30); GLOMERULAR FILTR. RATE CALC > 60 mL/min (>60); GLUCOSE,RANDOM 133 mg/dL (70-110); SODIUM SERUM 141 mmol/L (136-145); UREA NITROGEN, BLOOD 14 mg/dL (7-18)
[2025-02-16 03:47] LABS: ASPARTATE AMINOTRANSFERASE 22.0 U/L (15-37); TOTAL PROTEIN, SERUM 7.6 g/dL (6.4-8.2)
[2025-02-16 03:52] LABS: TROPONIN I-HIGH SENSITIVITY 11 ng/L (<76)
[2025-02-16 04:35] VITALS: BP 124/77; PULSE 89; RESP 20; TEMP 97.3; O2SAT 100
== END 2025-02-16 06:42 | disposition home or self-care (01) ==
LOC: EMS 02:07
DX: A08.4 Viral intestinal infection, unspecified (principal); Z79.82 Long term (current) use of aspirin; Z79.899 Other long term (current) drug therapy; Z88.0 Allergy status to penicillin
CPT/HCPCS: 80048; 80076; 83690; 84484; 85025; 93005; 99284